=== PATIENT | female | born 1950 | race Caucasian/White ===

== ENCOUNTER 2023-05-23 11:08 | Observation (INO) | payer MEDICARE, SELFPAY ==
[2023-05-23 15:41] VITALS: BMI 20.5
[2023-05-23] MEDS ORDERED: Ipratropium/Albuterol 3 ML NEB NEB SCH (16:45)
[2023-05-23] MEDS: Ketorolac Tromethamine 30 MG/ML VIAL IVP PRN (19:57)
[2023-05-23] MEDS ORDERED: Calcium Carbonate 500 MG ChewTAB PO PRN (20:59)
[2023-05-23] MEDS: Budesonide 0.5 MG/2 ML NEB INH SCH (21:00)
[2023-05-23] MEDS: Arformoterol 15 MCG/2 ML NEB NEB SCH (21:00)
[2023-05-23] MEDS: Ipratropium/Albuterol 3 ML NEB NEB SCH (23:01)
[2023-05-24] MEDS: Ketorolac Tromethamine 30 MG/ML VIAL IVP PRN ×3 (04:14→23:35)
[2023-05-24] MEDS: Arformoterol 15 MCG/2 ML NEB NEB SCH ×2 (07:20→18:51)
[2023-05-24] MEDS: Budesonide 0.5 MG/2 ML NEB INH SCH ×2 (07:20→18:54)
[2023-05-24] MEDS: Ipratropium/Albuterol 3 ML NEB NEB SCH ×3 (07:20→23:21)
[2023-05-24] MEDS: Cyclobenzaprine 10 MG TAB PO PRN ×3 (09:39→23:37)
[2023-05-24] MEDS ORDERED: methylPREDNISolone Sod Succ 40 MG VIAL IVP SCH (16:15)
[2023-05-24] MEDS: Acetaminophen 500 MG TAB PO PRN (16:18)
[2023-05-25] MEDS: Acetaminophen 500 MG TAB PO PRN (05:29)
[2023-05-25] MEDS: Ketorolac Tromethamine 30 MG/ML VIAL IVP PRN (06:45)
[2023-05-25] MEDS: Arformoterol 15 MCG/2 ML NEB NEB SCH (07:10)
[2023-05-25] MEDS: Ipratropium/Albuterol 3 ML NEB NEB SCH (07:10)
[2023-05-25] MEDS: Budesonide 0.5 MG/2 ML NEB INH SCH (07:11)
[2023-05-25 07:56] VITALS: BP 160/73; TEMP 98
== END 2023-05-25 10:55 | disposition home or self-care (01) ==
LOC: SURG B 15:11
PROVIDERS: ADMIT Internal Medicine; ATTEND Internal Medicine
DX: M54.50 Low back pain, unspecified (principal); R79.82 Elevated C-reactive protein (CRP); J45.909 Unspecified asthma, uncomplicated; R33.9 Retention of urine, unspecified
CPT/HCPCS: 72148; 86140; 94640 ×4; 96374; 96375; 96376 ×2; 97116; 97530; G0378 ×3; 36415; J1885; J2920; J7611; J7620; J7626